=== PATIENT | female | born 1945 | race Caucasian/White ===

== ENCOUNTER → 2018-06-15 10:02 | Outpatient (CLI) | payer MEDICARE, SELFPAY ==
[2018-06-15 10:34] LABS: Add Manual Diff / Slide Review NO; Basophils Absolute Auto 0 /uL (0-100); Basophils Percent Auto 0.6 % (0-2); Eosinophils Absolute Auto 200 /uL (0-450); Eosinophils Percent Auto 3.2 % (2-4); Hematocrit 46.2 % (36-46); Hemoglobin 15.2 g/dL (12.0-16.0); Lymphocytes Absolute Auto 1800 /uL (1100-4500); Lymphocytes Percent Auto 29.2 % (25-40); Mean Corpuscular Hemoglobin 29.7 PG (26-34); Monocytes Absolute Auto 700 /uL (0-900); Monocytes Percent Auto 11.2 % (3-14); Neutrophils Absolute Auto 3500 /uL (1500-7000); Neutrophils Percent Auto 55.8 % (50-75); Platelet Count 342 X10^3/uL (150-400); Red Blood Cell Count 5.13 X10^6/uL (4.0-5.2); Red Cell Distribution Width 13.6 % (11.6-14.8); White Blood Cell Count 6.3 X10^3/uL (4.5-11.0)
[2018-06-15 11:08] LABS: Alanine Aminotransferase 24 IU/L (9-52); Albumin 4.2 g/dL (3.5-5.0); Albumin Globulin Ratio 1.5 (1.0-2.8); Alkaline Phosphatase 79 U/L (38-126); Aspartate Aminotransferase 23 IU/L (14-36); BUN Creatinine Ratio 21.3 (6-22); Bilirubin Total 0.5 mg/dL (0.2-1.3); Blood Urea Nitrogen 17 mg/dL (7-17); Calcium 9.6 mg/dL (8.4-10.2); Carbon Dioxide 28 mmol/L (22-32); Chloride 105 mmol/L (98-107); Cholesterol 215 mg/dL (140-199); Estimated Glomerular Filt Rate > 60.0 mL/min (>60); Globulin 2.8 g/dL (1.7-4.1); Glucose 82 mg/dL (80-110); HDL Cholesterol 71 mg/dL (40-60); HEMOLYSIS < 15 (0-50); LDL Cholesterol Calculated 125 mg/dL (<100); Sodium 140 mmol/L (137-145); Triglycerides 96 mg/dL (35-150)
== END ==
PROVIDERS: PCP Family Medicine; Visit Provider Physician Assistant
DX: I10 Essential (primary) hypertension (principal); E78.5 Hyperlipidemia, unspecified
CPT/HCPCS: 36415; 80053; 80061; 85025

== ENCOUNTER → 2018-09-19 13:24 | Outpatient (CLI) | payer MEDICARE, SELFPAY ==
[2018-09-19 16:34] LABS: Alanine Aminotransferase 19 IU/L (9-52); Albumin 3.9 g/dL (3.5-5.0); Albumin Globulin Ratio 1.4 (1.0-2.8); Alkaline Phosphatase 85 U/L (38-126); Aspartate Aminotransferase 26 IU/L (14-36); BUN Creatinine Ratio 21.1 (6-22); Bilirubin Total 0.3 mg/dL (0.2-1.3); Blood Urea Nitrogen 19 mg/dL (7-17); Calcium 9.7 mg/dL (8.4-10.2); Carbon Dioxide 30 mmol/L (22-32); Chloride 103 mmol/L (98-107); Cholesterol 141 mg/dL (140-199); Estimated Glomerular Filt Rate > 60.0 mL/min (>60); Globulin 2.7 g/dL (1.7-4.1); Glucose 165 mg/dL (80-110); HDL Cholesterol 60 mg/dL (40-60); HEMOLYSIS < 15 (0-50); LDL Cholesterol Calculated 62 mg/dL (<100); Sodium 142 mmol/L (137-145); Total Protein 6.6 g/dL (6.3-8.2); Triglycerides 97 mg/dL (35-150)
== END ==
PROVIDERS: PCP Physician Assistant; Visit Provider Physician Assistant
DX: I10 Essential (primary) hypertension (principal); E78.5 Hyperlipidemia, unspecified
CPT/HCPCS: 36415; 80053; 80061

== ENCOUNTER → 2019-12-17 15:04 | Outpatient (ROUT) | payer MEDICARE, SELFPAY ==
[2019-12-17 15:16] LABS: Add Manual Diff / Slide Review NO; Basophils Absolute Auto 0 /uL (0-100); Basophils Percent Auto 0.7 % (0-2); Eosinophils Absolute Auto 200 /uL (0-450); Eosinophils Percent Auto 3.4 % (2-4); Hematocrit 45.4 % (36-46); Hemoglobin 15.2 g/dL (12.0-16.0); Lymphocytes Absolute Auto 1300 /uL (1100-4500); Lymphocytes Percent Auto 23.2 % (25-40); Mean Corpuscular HGB Conc 33.5 % (30-36); Mean Corpuscular Hemoglobin 30.7 PG (26-34); Mean Corpuscular Volume 91.6 fL (80-100); Monocytes Absolute Auto 800 /uL (0-900); Neutrophils Absolute Auto 3300 /uL (1500-7000); Neutrophils Percent Auto 58.7 % (50-75); Platelet Count 329 X10^3/uL (150-400); Red Blood Cell Count 4.95 X10^6/uL (4.0-5.2); Red Cell Distribution Width 12.9 % (11.6-14.8); White Blood Cell Count 5.7 X10^3/uL (4.5-11.0)
[2019-12-17 15:38] LABS: Alanine Aminotransferase 12 IU/L (<35); Albumin 3.9 g/dL (3.5-5.0); Albumin Globulin Ratio 1.3 (1.0-2.8); Alkaline Phosphatase 92 U/L (38-126); Aspartate Aminotransferase 26 IU/L (14-36); BUN Creatinine Ratio 25.3 (6-22); Bilirubin Total 0.4 mg/dL (0.2-1.3); Blood Urea Nitrogen 19 mg/dL (7-17); Calcium 9.7 mg/dL (8.4-10.2); Carbon Dioxide 30 mmol/L (22-32); Chloride 104 mmol/L (98-107); Cholesterol 178 mg/dL (140-199); Estimated Glomerular Filt Rate > 60.0 mL/min (>60); Glucose 85 mg/dL (80-110); HDL Cholesterol 77 mg/dL (40-60); HEMOLYSIS < 15 (0-50); LDL Cholesterol Calculated 78 mg/dL (<100); Potassium 4.3 mmol/L (3.4-5.1); Sodium 140 mmol/L (137-145); Total Protein 6.9 g/dL (6.3-8.2); Triglycerides 116 mg/dL (35-150)
== END ==
PROVIDERS: PCP Physician Assistant; Visit Provider Physician Assistant
DX: I10 Essential (primary) hypertension (principal); E78.5 Hyperlipidemia, unspecified
CPT/HCPCS: 80053; 80061; 85025

== ENCOUNTER → 2022-09-06 08:04 | Outpatient (CLI) | payer MEDICARE, SELFPAY ==
[2022-09-06 09:43] LABS: BUN Creatinine Ratio 27.3 (6-22); Blood Urea Nitrogen 21 mg/dL (7-17); Calcium 9.3 mg/dL (8.4-10.2); Carbon Dioxide 28 mmol/L (22-32); Chloride 103 mmol/L (98-107); Estimated Glomerular Filt Rate > 60 mL/min (>60); Glucose 83 mg/dL (80-110); HEMOLYSIS 16 (0-50); Potassium 3.8 mmol/L (3.4-5.1); Sodium 138 mmol/L (137-145)
== END ==
PROVIDERS: PCP Physician Assistant; Referring Provider Physician Assistant; Visit Provider Physician Assistant
DX: I10 Essential (primary) hypertension (principal)
CPT/HCPCS: 36415; 80048

== ENCOUNTER → 2023-04-04 07:31 | Outpatient (CLI) | payer MEDICARE, SELFPAY ==
[2023-04-04 08:14] LABS: Add Manual Diff / Slide Review NO; Basophils Absolute Auto 0 /uL (0-100); Basophils Percent Auto 0.6 % (0-2); Eosinophils Absolute Auto 300 /uL (0-450); Eosinophils Percent Auto 4.8 % (2-4); Hematocrit 43.7 % (36-46); Hemoglobin 14.5 g/dL (12.0-16.0); Lymphocytes Absolute Auto 1700 /uL (1100-4500); Mean Corpuscular HGB Conc 33.2 % (30-36); Mean Corpuscular Hemoglobin 29.9 PG (26-34); Mean Corpuscular Volume 90.1 fL (80-100); Monocytes Absolute Auto 800 /uL (0-900); Monocytes Percent Auto 12.3 % (3-14); Neutrophils Absolute Auto 3800 /uL (1500-7000); Neutrophils Percent Auto 57.3 % (50-75); Platelet Count 325 X10^3/uL (150-400); Red Blood Cell Count 4.85 X10^6/uL (4.0-5.2); White Blood Cell Count 6.7 X10^3/uL (4.5-11.0)
[2023-04-04 08:28] LABS: Alanine Aminotransferase 12 IU/L (<35); Albumin 3.8 g/dL (3.5-5.0); Albumin Globulin Ratio 1.3 (1.0-2.8); Alkaline Phosphatase 78 U/L (38-126); Aspartate Aminotransferase 21 IU/L (14-36); BUN Creatinine Ratio 20.3 (6-22); Bilirubin Total 0.6 mg/dL (0.2-1.3); Blood Urea Nitrogen 16 mg/dL (7-17); Calcium 9.9 mg/dL (8.4-10.2); Carbon Dioxide 26 mmol/L (22-32); Chloride 103 mmol/L (98-107); Cholesterol 133 mg/dL (140-199); Estimated Glomerular Filt Rate > 60 mL/min (>60); Glucose 92 mg/dL (80-110); HDL Cholesterol 65 mg/dL (40-60); HEMOLYSIS < 15 (0-50); LDL Cholesterol Calculated 50 mg/dL (<100); Potassium 3.9 mmol/L (3.4-5.1); Sodium 136 mmol/L (137-145); Total Protein 6.8 g/dL (6.3-8.2); Triglycerides 89 mg/dL (35-150)
== END ==
LOC: LAB 07:33
PROVIDERS: PCP Physician Assistant; Referring Provider Physician Assistant; Visit Provider Physician Assistant
DX: I10 Essential (primary) hypertension (principal); E78.49 Other hyperlipidemia
CPT/HCPCS: 36415; 80053; 80061; 85025

== ENCOUNTER 2023-07-10 12:46 | Emergency (ER) | payer MEDICARE, SELFPAY ==
[2023-07-10] VITALS (14 sets, daily range): BP systolic 115–151; BP diastolic 62–77; PULSE 67–93; RESP 18–25; TEMP 37.1; O2SAT 85–97
--- NOTE | 2023-07-10 12:56 | DI.CT.S_ITS ---
PROCEDURE: CT HEAD/BRAIN WO CON INDICATIONS: h/o lung CA, change in mental status, not talking but alert TECHNIQUE: Noncontrast 4.5 mm thick angled axial sections acquired from the foramen magnum to the vertex, with coronal and sagittal reformats. For radiation dose reduction, the following was used: automated exposure control, adjustment of mA and/or kV according to patient size. COMPARISON: None. FINDINGS: Image quality: Diagnostic. CSF spaces: Basal cisterns are patent. No extra-axial fluid collections. The ventricles are symmetric in size and shape. Brain: No acute intracranial hemorrhage. Intracranial hyperdense masses are noted with associated vasogenic edema. There is a 1.3 cm inferior left frontal lobe mass seen on image 12/series 2. A similar mass measuring 1.1 cm noted in the posterior right parietal lobe (25/series 2). There is cerebral volume loss for age, with resultant ventricular and sulcal prominence. There are periventricular and deep white matter chronic small vessel ischemic changes. There is intracranial internal carotid artery atherosclerosis. Skull and face: Calvarium and visualized facial bones appear intact, without suspicious lesions. Sinuses: Visualized sinuses and mastoids are clear. IMPRESSION: 1. Multiple hyperdense intracranial masses with associated vasogenic edema noted in the left frontal lobe and right parietal lobe. 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 No evidence for mass effect or midline shift of structures. 2. No acute intracranial hemorrhage. 3. Age related senescent changes and sequela of chronic small vessel ischemic disease. Dictated by: Delfino Figueroa M.D. on 07/10/2023 at 14:11 Approved by: Delfino Figueroa M.D. on 07/10/2023 at 14:15
--- NOTE | 2023-07-10 12:56 | DI.CT.S_ITS ---
PROCEDURE: CT ANGIO HEAD AND NECK INDICATIONS: h/o lung CA, change in mental status, not talking but alert TECHNIQUE: After the administration of intravenous contrast, 1 mm thick sections acquired from the aortic arch through the [place]. 3-dimensional ihwfcec-qozwukwdr-rthdwdcjgn (MIP) and/or volume rendering reformats were acquired of the central intracranial vasculature and neck separately. For radiation dose reduction, the following was used: automated exposure control, adjustment of mA and/or kV according to patient size. COMPARISON: [facility], CT, CT HEAD/BRAIN WO CON, 07/10/2023, 13:30. [facility], CR, XR CHEST 1V, 07/10/2023, 13:21. FINDINGS: Image quality: Diagnostic. BRAIN: CSF spaces: Ventricles are stable in size and shape. Basal cisterns are patent. No extra-axial fluid collections. Brain: There are intracranial masses with associated vasogenic edema noted in the left frontal lobe and right posterior parietal lobe. This is similar to lesion seen on comparison CT of the head from earlier same day. Findings are suspicious for intracranial metastases.. Skull and face: Calvarium and facial bones appear intact, without suspicious lesions. Orbits appear normal. Sinuses: Sinuses and mastoids are clear. HEAD CT ANGIOGRAPHY: Anterior circulation: Intracranial internal carotid arteries are diffusely enlarged in size bilaterally. No occlusion. No dissection. No focal aneurysm.. The flow within the paired anterior cerebral arteries is normal and symmetric. The flow within the middle cerebral arteries is normal and symmetric. The anterior communicating artery is seen. Posterior circulation: Visualized portions of the vertebral arteries demonstrate normal caliber, and join to form a normal appearing basilar artery. Flow within the posterior cerebral arteries is normal and symmetric. No aneurysms are seen. NECK CT ANGIOGRAPHY: Carotid system: The great vessels demonstrate a conventional anatomy as they arise from the aortic arch. The origins of the common carotid arteries appear patent. The common carotid arteries demonstrate normal caliber and courses. The bifurcation regions are both widely patent. The internal carotid arteries demonstrate normal calibers and courses. Posterior circulation: The origins of the vertebral arteries both appear widely patent. The more superior extracranial portions of both vertebral arteries also demonstrate normal courses and calibers. They join to form a normal appearing basilar artery. Soft tissues: Visualized neck soft tissues demonstrate no suspicious abnormalities. Atelectasis of the right upper lobe and large right lung mass compatible with known history of lung cancer. Air bronchograms noted on the right. Right pleural effusion. Upper lobe predominant pulmonary emphysema. Left lung is otherwise clear. Bones: No suspicious bony lesions. Visualized cervical spine appears normally aligned. Multilevel cervical spondylosis. No acute compression fracture. IMPRESSION: Diffusely enlarged intracranial arterial vasculature without evidence for stenosis, dissection, or focal aneurysm. No occlusion seen. No significant abnormality is seen within the arteries of the neck. Intracranial nodular masses in the left frontal lobe and right parietal lobe compatible with intracranial metastases in this patient with known lung cancer as seen in the right hemithorax. Associated collapse of the right upper lobe. Any quantitative measurements of stenosis were performed using NASCET criteria. Dictated by: Delfino Figueroa M.D. on 07/10/2023 at 14:24 Approved by: Delfino Figueroa M.D. on 07/10/2023 at 14:30
--- NOTE | 2023-07-10 12:56 | DI.RAD.S_ITS ---
PROCEDURE: XR CHEST 1V INDICATIONS: altered mental status TECHNIQUE: One view of the chest was acquired. COMPARISON: [facility], CT, CT HALL, 07/04/2023, 13:46. [facility], CR, XR CHEST 1 VIEW, 06/24/2023, 9:38. FINDINGS: Surgical changes and devices: Right tunneled port device in place. Lungs and pleura: Redemonstration of right mid lung zone consolidation/mass with atelectasis of the right upper lobe. Nodular opacities involving the periphery of the left lower lung zone. Mediastinum: Mediastinal contours appear normal. Heart size is normal. Bones and chest wall: No suspicious bony lesions. Overlying soft tissues appear unremarkable. IMPRESSION: Stable appearance of the right hemithorax with known right lung mass and atelectasis of the right upper lobe. Nodular opacities of the left lower lobe possibly representing new pulmonary nodules versus focal airspace disease/pneumonia. Dictated by: Delfino Figueroa M.D. on 07/10/2023 at 13:56 Approved by: Delfino Figueroa M.D. on 07/10/2023 at 14:00
--- NOTE | 2023-07-10 12:59 | PC.NURSE ---
Morphine ER 30 mg counted, 41 in bottle. Filled 06/27/23 w/ # 60. Oxycodone IR appears to have appropriate number however is PRN so is unable to accurately figure use.
--- NOTE | 2023-07-10 13:07 | ED_ITS ---
HPI - Altered Mental Status General Chief Complaint: Altered Mental Status Stated Complaint: Poss. Pain Med OD Time Seen by Provider: 07/10/23 12:58 Source: patient, family, RN notes reviewed and old records reviewed Mode of arrival: Ambulatory History of Present Illness HPI narrative: 78-year-old female with known metastatic stage IV lung cancer on chemo and radiation with also history of hypertension who presents with alteration in mental status has been states he thought she might have taken too many pain medications. He states she has not really talking. He states she normally does not walk very much she spends about 23 hours a day in bed secondary to pain in her back from her metastatic cancer. Patient today when he went into check on her was sort of moving things around and seeming to organize, she will sort of follow directions but he states it seems to take awhile for things to get through but she can not respond or talk. He has not appreciate any obvious weakness or facial droop. He states she seemed to be doing normally last night. She is on oxycodone and morphine currently but has not been somnolent or sleepy today. No reports of fevers, no reports of chest pain or shortness of breath, occasionally has vomiting but none today. Had 1 episode of incontinence with stool and urine earlier in the week. Has not had any today. She has not had any obvious weakness that he is appreciated. She has not on any anticoagulants she states she is on medication for blood pressure as well as pain medication. Allergy to erythromycin base but no other allergies. No tobacco, alcohol or recreational drugs reported. Patient follows with oncology at [facility]. Related Data Home Medications Medication Instructions Recorded Confirmed amlodipine 2.5 mg tablet 2.5 mg PO DAILY 07/10/23 07/10/23 aspirin 81 mg capsule 81 mg PO DAILY 07/10/23 07/10/23 atenolol 50 mg tablet 50 mg PO DAILY 07/10/23 07/10/23 lisinopril 40 mg tablet 40 mg PO DAILY 07/10/23 07/10/23 magnesium citrate 150 ml PO DAILY PRN Constipation 07/10/23 07/10/23 morphine 30 mg tablet,extended 30 mg PO BID 07/10/23 07/10/23 release oxycodone 10 mg tablet 10 mg PO Q4HR PRN Pain (Scale 07/10/23 07/10/23 Score 7-10) rosuvastatin 5 mg tablet 5 mg PO DAILY 07/10/23 07/10/23 Previous Rx's Medication Instructions Recorded dexamethasone 4 mg tablet 4 mg PO TID #30 tabs 07/10/23 Allergies Allergy/AdvReac Type Severity Reaction Status Date / Time erythromycin base Allergy Unknown Verified 07/10/23 13:50 [ERYTHROMYCIN BASE] Review of Systems Review of Systems ROS Unobtainable: All systems reviewed & are unremarkable except as noted in HPI and below Patient History Medical History (Updated 07/10/23 @ 15:24 by Yanelis Costello DO) Port-A-Cath in place History of smoking Hypertension Cancer of upper lobe of right lung Hyperlipidemia Surgical History Status post hysterectomy Social History Smoking Status: Former smoker Exam Narrative Exam Narrative: GEN: well nourishedfemale, alert, answers yes when I ask if she can hear me but does not answer any other questions or we will check all,, patient appears to be in mild distress. Patient does not follow commands. HEENT: Atraumatic, pupils are equal round reactive to light, extraocular movements are intact, nares are clear, TMs are clear with no fluid, there is no conjunctival pallor. Throat is clear without any exudates, erythema, tonsillar enlargement or uvular deviation, no facial droop. HEART: Regular rate and rhythm without murmur, clicks, rubs. Pulses are equal in upper and lower extremities LUNGS:Lungs clear to auscultation, no wheezes, rales, crackles, chest moves symmetrically, no tachypnea or accessory muscle use ABD:bowel sounds normal, soft, non-tender, no guarding, rebound, rigidity, no masses noted, no hepatosplenomegaly :No CVA tenderness MSCL: Non-tender, no muscle atrophy, muscles strength 5/5 upper and lower extremities, full range of motion, normal gait patient did not ambulate into the department. NEURO:CN 2-12 intact, sensation normal, patient GCS of 14, she is alert does not really follow commands we will hold her arms up equally but can not get her to perform any other NIH exam. No obvious lateralizing changes. Does appear to have some expressive aphasia but unclear if she is actually understanding anything that I am saying. Initial Vital Signs Initial Vital Signs: Vital Signs Pulse Rate 91 H 07/10/23 12:55 Respiratory Rate 23 07/10/23 12:55 Pulse Oximetry 93 07/10/23 12:55 Course Orders Ordered: ED Orders 07/10/23 12:56 CT angio head and neck Stat CT head/brain wo con Stat XR chest 1V Stat 07/10/23 13:00 Complete Blood Count AUTO DIFF Stat Comprehensive Metabolic Panel Stat ETOH [Ethanol (ETOH)] Stat PTT Partial Thromboplastin Guillaume Stat Prothrombin Time INR Stat 07/10/23 13:24 EKG-12 Lead Stat 07/10/23 15:15 Urinalysis and Microscopic Stat Urine Drug Screen, Rapid Stat Discontinued Medications Dexamethasone (Dexamethasone 10 Mg/Ml Vial) 10 mg IV NOW ONE Stop: 07/10/23 14:22 Last Admin: 07/10/23 14:32 Dose: 10 mg Documented By: SB Vital Signs Vital signs: Vital Signs - 8 hr 07/10/23 12:55 07/10/23 12:56 07/10/23 12:56 Temperature Pulse Rate 91 H 91 H Respiratory Rate 23 25 H Blood Pressure 124/62 Pulse Oximetry 93 96 Oxygen Delivery Method Oxygen Flow Rate 07/10/23 13:00 07/10/23 13:00 07/10/23 13:04 Temperature 98.8 F Pulse Rate 92 H 92 H Respiratory Rate 23 18 Blood Pressure 125/62 125/62 Pulse Oximetry 94 93 Oxygen Delivery Method Room Air Oxygen Flow Rate 07/10/23 13:43 07/10/23 13:44 07/10/23 13:44 Temperature Pulse Rate 67 92 H Respiratory Rate 23 Blood Pressure 126/63 Pulse Oximetry 90 L 89 L Oxygen Delivery Method Room Air Oxygen Flow Rate 07/10/23 13:55 07/10/23 14:01 07/10/23 14:01 Temperature Pulse Rate 91 H Respiratory Rate 22 Blood Pressure 128/71 Pulse Oximetry 85 L 96 Oxygen Delivery Method Room Air Oxygen Flow Rate 07/10/23 14:30 07/10/23 14:30 07/10/23 15:00 Temperature Pulse Rate 88 Respiratory Rate Blood Pressure 115/67 122/69 Pulse Oximetry 97 Oxygen Delivery Method Nasal Cannula Oxygen Flow Rate 2 07/10/23 15:00 07/10/23 15:24 07/10/23 15:24 Temperature Pulse Rate 90 88 Respiratory Rate 21 Blood Pressure 151/72 H Pulse Oximetry 95 95 Oxygen Delivery Method Oxygen Flow Rate 07/10/23 15:30 07/10/23 15:30 07/10/23 16:00 Temperature Pulse Rate 86 90 Respiratory Rate 24 22 Blood Pressure 142/70 H Pulse Oximetry 97 96 Oxygen Delivery Method Nasal Cannula Nasal Cannula Oxygen Flow Rate 2 2 07/10/23 16:46 Temperature Pulse Rate 93 H Respiratory Rate 24 Blood Pressure 141/77 H Pulse Oximetry 92 Oxygen Delivery Method Room Air Oxygen Flow Rate MDM - Altered Mental Status Lab Data 07/10/23 13:00 07/10/23 13:00 Labs: Lab Results 07/10/23 07/10/23 07/10/23 Range/Units 13:00 15:15 15:15 WBC 9.0 (4.5-11.0) X10^3/uL RBC 4.27 (4.0-5.2) X10^6/uL Hgb 11.8 L (12.0-16.0) g/dL Hct 36.1 (36-46) % MCV 84.6 (80-100) fL MCH 27.6 (26-34) PG MCHC 32.6 (30-36) % RDW 14.1 (11.6-14.8) % Plt Count 335 (150-400) X10^3/uL Neut % (Auto) 83.9 H (50-75) % Lymph % (Auto) 4.1 L (25-40) % [place] % (Auto) 10.6 (3-14) % Eos % (Auto) 1.1 L (2-4) % Baso % (Auto) 0.3 (0-2) % Neut # (Auto) 7500 H (8368-8105) /uL Lymph # (Auto) 400 L (5282-0755) /uL [place] # (Auto) 1000 H (0-900) /uL Eos # (Auto) 100 (0-450) /uL Baso # (Auto) 0 (0-100) /uL PT 13.8 H (9.4-12.5) SECONDS INR 1.2 (0.9-1.3) APTT 31 (25.1-36.5) SECONDS Sodium 135 L (137-145) mmol/L Potassium 4.1 (3.4-5.1) mmol/L Chloride 99 (98-107) mmol/L Carbon Dioxide 28 (22-32) mmol/L BUN 30 H (7-17) mg/dL Creatinine 0.81 (0.52-1.04) mg/dL Estimated GFR > 60 (>60) mL/min BUN/Creatinine Ratio 37.0 H (6-22) Glucose 126 H (80-110) mg/dL Calcium 9.4 (8.4-10.2) mg/dL Total Bilirubin 0.8 (0.2-1.3) mg/dL AST 61 H (14-36) IU/L ALT 16 (<35) IU/L Alkaline Phosphatase 62 (38-126) U/L Total Protein 6.8 (6.3-8.2) g/dL Albumin 3.3 L (3.5-5.0) g/dL Globulin 3.5 (1.7-4.1) g/dL Albumin/Globulin Ratio 0.9 L (1.0-2.8) Urine Color Yellow Urine Appearance Clear Urine pH 5.0 Normal (4.5-8.0) Ur Specific [place] 1.015 (1.000-1.035) Urine Protein Trace H (Negative) Urine Glucose (UA) Negative (Negative) g/dL Urine Ketones 1+ H (NEGATIVE) Urine Occult Blood Negative (Negative) Urine Nitrate Negative (Negative) Urine Bilirubin Negative (NEGATIVE) Urine Urobilinogen 1.0 (0.2) E.U./dL Ur Leukocyte Esterase Negative (NEGATIVE) Urine RBC 0-1/hpf (0-5/HPF) Urine WBC 0-1/hpf (0-5/HPF) Ur Squamous Epith Cells 0-1 /hpf (0-5/HPF) Urine Bacteria Occasional (0-1) (None) Urine Mucus 1+ H (Negative) Ur Culture Indicated? Cult not indicated Vol Urine Centrifuged 10ml (spun) U Opiates 300ng/mL cut Positive H (Negative) Ur Oxycodone Screen Positive H (Negative) Urine Methadone Screen Negative (Negative) Ur Barbiturates Screen Negative (Negative) U Tricyclic Antidepress Negative (Negative) Ur Phencyclidine Scrn Negative (Negative) Ur Amphetamines Screen Negative (Negative) U Methamphetamines Scrn Negative (Negative) Ur MDMA Scrn (Ecstasy) Negative (Negative) U Benzodiazepines Scrn Negative (Negative) Urine Cocaine Screen Negative (Negative) U Marijuana (THC) Screen Positive H (Negative) Urine Specific [place] Normal (Normal) Ethyl Alcohol < 10 ( - 10) mg/dL Ur Creatinine Normal (Normal) Point of Care Testing Glucose POC [address] scan - head: Radiologist's Impression: [address] [address] [address] Scan Report Signed Patient: Itzel Valencia MR#: [id number] : 1945 Acct:[id number] Age/Sex: 78 / F Date of Service: 07/10/23 Loc: ED Accession Number: [id number] Procedure: CT head/brain wo con Ordering Provider: Yanelis Costello D.O. PROCEDURE: CT HEAD/BRAIN WO CON INDICATIONS: h/o lung CA, change in mental status, not talking but alert TECHNIQUE: Noncontrast 4.5 mm thick angled axial sections acquired from the foramen magnum to the vertex, with coronal and sagittal reformats. For radiation dose reduction, the following was used: automated exposure control, adjustment of mA and/or kV according to patient size. COMPARISON: None. FINDINGS: Image quality: Diagnostic. CSF spaces: Basal cisterns are patent. No extra-axial fluid collections. The ventricles are symmetric in size and shape. Brain: No acute intracranial hemorrhage. Intracranial hyperdense masses are noted with associated vasogenic edema. There is a 1.3 cm inferior left frontal lobe mass seen on image 12/series 2. A similar mass measuring 1.1 cm noted in the posterior right parietal lobe (25/series 2). There is cerebral volume loss for age, with resultant ventricular and sulcal prominence. There are periventricular and deep white matter chronic small vessel ischemic changes. There is intracranial internal carotid artery atherosclerosis. Skull and face: Calvarium and visualized facial bones appear intact, without suspicious lesions. Sinuses: Visualized sinuses and mastoids are clear. IMPRESSION: 1. Multiple hyperdense intracranial masses with associated vasogenic edema noted in the left frontal lobe and right parietal lobe. 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 No evidence for mass effect or midline shift of structures. 2. No acute intracranial hemorrhage. 3. Age related senescent changes and sequela of chronic small vessel ischemic disease. Dictated by: Delfino Figueroa M.D. on 07/10/2023 at 14:11 Approved by: Delfino Figueroa M.D. on 07/10/2023 at 14:15 CTA - brain/neck: Radiologist's Impression: Close Head/Neck CTA (Signed) Delfino Figueroa - 07/10/[address] (Signed) Delfino Figueroa - 07/10/23 Chest X-Ray (Signed) Delfino Figueroa - 07/10/23 Launch?[place] [address] CT Scan Report Signed Patient: Itzel Valencia MR#: [id number] : 1945 Acct:[id number] Age/Sex: 78 / F Date of Service: 07/10/23 Loc: ED Accession Number: [id number] Procedure: CT angio head and neck Ordering Provider: Yanelis Costello D.O. PROCEDURE: CT ANGIO HEAD AND NECK INDICATIONS: h/o lung CA, change in mental status, not talking but alert TECHNIQUE: After the administration of intravenous contrast, 1 mm thick sections acquired from the aortic arch through the [place] of [place]. 3-dimensional rezmewk-vudzccyvq-lsiqjutevs (MIP) and/or volume rendering reformats were acquired of the central intracranial vasculature and neck separately. For radiation dose reduction, the following was used: automated exposure control, adjustment of mA and/or kV according to patient size. COMPARISON: [facility], CT, CT HEAD/BRAIN WO CON, 07/10/2023, 13:30. [facility], CR, XR CHEST 1V, 07/10/2023, 13:21. FINDINGS: Image quality: Diagnostic. BRAIN: CSF spaces: Ventricles are stable in size and shape. Basal cisterns are patent. No extra-axial fluid collections. Brain: There are intracranial masses with associated vasogenic edema noted in the left frontal lobe and right posterior parietal lobe. This is similar to lesion seen on comparison CT of the head from earlier same day. Findings are suspicious for intracranial metastases.. Skull and face: Calvarium and facial bones appear intact, without suspicious lesions. Orbits appear normal. Sinuses: Sinuses and mastoids are clear. HEAD CT ANGIOGRAPHY: Anterior circulation: Intracranial internal carotid arteries are diffusely enlarged in size bilaterally. No occlusion. No dissection. No focal aneurysm.. The flow within the paired anterior cerebral arteries is normal and symmetric. The flow within the middle cerebral arteries is normal and symmetric. The anterior communicating artery is seen. Posterior circulation: Visualized portions of the vertebral arteries demonstrate normal caliber, and join to form a normal appearing basilar artery. Flow within the posterior cerebral arteries is normal and symmetric. No aneurysms are seen. NECK CT ANGIOGRAPHY: Carotid system: The great vessels demonstrate a conventional anatomy as they arise from the aortic arch. The origins of the common carotid arteries appear patent. The common carotid arteries demonstrate normal caliber and courses. The bifurcation regions are both widely patent. The internal carotid arteries demonstrate normal calibers and courses. Posterior circulation: The origins of the vertebral arteries both appear widely patent. The more superior extracranial portions of both vertebral arteries also demonstrate normal courses and calibers. They join to form a normal appearing basilar artery. Soft tissues: Visualized neck soft tissues demonstrate no suspicious abnormalities. Atelectasis of the right upper lobe and large right lung mass compatible with known history of lung cancer. Air bronchograms noted on the right. Right pleural effusion. Upper lobe predominant pulmonary emphysema. Left lung is otherwise clear. Bones: No suspicious bony lesions. Visualized cervical spine appears normally aligned. Multilevel cervical spondylosis. No acute compression fracture. IMPRESSION: Diffusely enlarged intracranial arterial vasculature without evidence for stenosis, dissection, or focal aneurysm. No occlusion seen. No significant abnormality is seen within the arteries of the neck. Intracranial nodular masses in the left frontal lobe and right parietal lobe compatible with intracranial metastases in this patient with known lung cancer as seen in the right hemithorax. Associated collapse of the right upper lobe. Any quantitative measurements of stenosis were performed using NASCET criteria. Dictated by: Delfino Figueroa M.D. on 07/10/2023 at 14:24 Approved by: Delfino Figueroa M.D. on 07/10/2023 at 14:30 ECG Data Attestation: I personally reviewed and interpreted this ECG as follows: Prior ECG tracings: not available for review Interpretation: Normal sinus rhythm rate of 93 OK 144 QRS is 74 QTC 450. Nonspecific change. No prior EKGs for comparison. MDM Narrative Medical decision making narrative: 78-year-old female with altered mental status possible expressive aphasia but patient does not really seem to understand commands no other clear lateralizing or stroke-like effects. She is on significant narcotics for pain but appears alert and does not appear to be somnolent making this less likely source. She does have known metastatic lung cancer so concern for mass or bleed, potential also for stroke, electrolyte abnormality versus infection also possibility although patient is afebrile with heart rate of 92 but otherwise appropriate vitals in the department. Labs white count of 9, hemoglobin 11.8, platelets of 335, leftward shift. INR 1.2. Sodium 135, electrolytes more 1, BUN 30 creatinine is 0.8 glucose of 126, AST of 61, LFTs are negative. EKG Head CT-multiple hyperdense intracranial masses with vasogenic edema associated left frontal lobe and right parietal lobe, findings are compatible with intracranial metastases no evidence for mass effect or midline shift structures, no acute intracranial hemorrhage, age-related senescent changes in sequela of chronic small-vessel ischemic disease. CT angio head and neck: Diffusely enlarged intracranial arterial vasculature without evidence for stenosis, dissection or focal aneurysm. No occlusion seen. No significant abnormality seen in arteries in the neck intracranial nodular masses left frontal lobe and right parietal lobe compatible with intracranial metastases and lung with known lung cancer is seen in the right hemithorax with associated collapse of the right upper lobe. Patient was given dose of dexamethasone 10 mg IV. She follows with oncology at [facility] Dr. Rice. They have been receiving radiation to her chest. Discussed we will discuss with the mom about next step recommendations. Reviewed with family whether or not this was palliative treatment and has been states it is not. Patient has been requiring 2 L nasal cannula after discussion with the patient and family he notes that she did require some as you are having a port placed on the and has been having intermittent O2 requirements although they do not have any at home. Spoke with patient and family. They notes she has been requiring some oxygen which is new. Discussed with Dr. Hall on-call for Oncology patient has had some mental status change but is otherwise alert she is a bit more conversant on recheck. He recommends adding dexamethasone 4 mg t.i.d. they will get connect her with radiation oncology for brain radiation. Discussed she is having some new O2 requirements but has pretty significant mass changes in her lungs, RT was able to set patient up with home O2. They feel comfortable returning home has been states her mentation seems much better. I agree. Discussed return precautions to start oral dexamethasone continue t.i.d.. 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 I spoke with your oncology team, Dr. Paris today they will reach out to you about setting up radiation of the brain. We are also starting you on an oral steroid to help with the swelling, take 1 tablet every 8 hours. Prescription was sent to [facility] in [place]. You may continue your other home medications as prescribed. It was also noted your oxygen was low today likely secondary to the large mass in your chest, respiratory therapy has set you up with home O2. Please return for fevers, new or increasing changes to mental status, severe headaches, vomiting, difficulty with movement, ambulation, falls, loss of bowel or bladder control or other new or concerning changes. Prescriptions: New dexamethasone 4 mg tablet 4 mg PO TID Qty: 30 0RF No Action amlodipine 2.5 mg tablet 2.5 mg PO DAILY morphine 30 mg tablet extended release 30 mg PO BID magnesium citrate Solution 150 ml PO DAILY PRN (Reason: Constipation) lisinopril 40 mg tablet 40 mg PO DAILY atenolol 50 mg tablet 50 mg PO DAILY rosuvastatin 5 mg tablet 5 mg PO DAILY oxycodone 10 mg tablet 10 mg PO Q4HR PRN (Reason: Pain (Scale Score 7-10)) aspirin 81 mg Capsule 81 mg PO DAILY Referrals: Divina Fletcher PA-C [Primary Care Provider] - Juanpablo Rice MD [Physician] - Stand Alone Forms: Patient Portal/API
[2023-07-10 13:11] LABS: Add Manual Diff / Slide Review NO; Basophils Absolute Auto 0 /uL (0-100); Basophils Percent Auto 0.3 % (0-2); Eosinophils Absolute Auto 100 /uL (0-450); Eosinophils Percent Auto 1.1 % (2-4); Hematocrit 36.1 % (36-46); Hemoglobin 11.8 g/dL (12.0-16.0); Lymphocytes Absolute Auto 400 /uL (1100-4500); Lymphocytes Percent Auto 4.1 % (25-40); Mean Corpuscular HGB Conc 32.6 % (30-36); Mean Corpuscular Hemoglobin 27.6 PG (26-34); Mean Corpuscular Volume 84.6 fL (80-100); Monocytes Absolute Auto 1000 /uL (0-900); Monocytes Percent Auto 10.6 % (3-14); Neutrophils Absolute Auto 7500 /uL (1500-7000); Neutrophils Percent Auto 83.9 % (50-75); Platelet Count 335 X10^3/uL (150-400); Red Blood Cell Count 4.27 X10^6/uL (4.0-5.2); Red Cell Distribution Width 14.1 % (11.6-14.8)
[2023-07-10 13:15] LABS: INR 1.2 (0.9-1.3); Prothrombin Time 13.8 SECONDS (9.4-12.5)
[2023-07-10 13:19] LABS: PTT Partial Thromboplastin Tim 31 SECONDS (25.1-36.5)
[2023-07-10 13:20] LABS: Alanine Aminotransferase 16 IU/L (<35); Albumin 3.3 g/dL (3.5-5.0); Albumin Globulin Ratio 0.9 (1.0-2.8); Alkaline Phosphatase 62 U/L (38-126); Aspartate Aminotransferase 61 IU/L (14-36); Bilirubin Total 0.8 mg/dL (0.2-1.3); Blood Urea Nitrogen 30 mg/dL (7-17); Calcium 9.4 mg/dL (8.4-10.2); Carbon Dioxide 28 mmol/L (22-32); Chloride 99 mmol/L (98-107); Estimated Glomerular Filt Rate > 60 mL/min (>60); Globulin 3.5 g/dL (1.7-4.1); Glucose 126 mg/dL (80-110); HEMOLYSIS 46 (0-50); Potassium 4.1 mmol/L (3.4-5.1); Sodium 135 mmol/L (137-145); Total Protein 6.8 g/dL (6.3-8.2)
[2023-07-10 13:21] LABS: Ethanol (ETOH) < 10 mg/dL
--- NOTE | 2023-07-10 13:34 | PC.NURSE ---
Patient left department with public health sanitarian technician.
--- NOTE | 2023-07-10 14:29 | PC.NURSE ---
This RN checks on patient. Pt is alert to name, , but unaware of place and date. Pt denies any pain. Warm blankets given. Call light within reach. Encouraged to use for needs.
[2023-07-10] MEDS: DEXAMETHASONE 10 MG/ML VIAL IV (14:32)
[2023-07-10 15:32] LABS: Appearance Urine UA CLEAR; Bilirubin Urine UA NEGATIVE (NEGATIVE); Color Urine UA YELLOW; Glucose Urine UA NEGATIVE (Negative); Ketones Urine UA 1+ (NEGATIVE); Leukocyte Esterase Urine UA NEGATIVE (NEGATIVE); Nitrite Urine UA NEGATIVE (Negative); Occult Blood Urine UA NEGATIVE (Negative); Protein Urine UA TRACE (Negative); Specific Gravity Urine UA 1.015 (1.000-1.035)
[2023-07-10 15:36] LABS: UR Morphine/Opiate cutoff 300 Positive (Negative); Ur Creatinine Normal (Normal); Ur Specific Gravity Normal (Normal); Urine Amphetamines Negative (Negative); Urine Cocaine Negative (Negative); Urine Methamphetamines Negative (Negative); Urine Phencyclidine Negative (Negative); Urine Tetrahydrocannabinol Positive (Negative); Urine pH Normal (Normal)
[2023-07-10 15:37] LABS: Urine Barbiturates Negative (Negative); Urine Benzodiazepines Negative (Negative); Urine MDMA Negative (Negative); Urine Methadone Negative (Negative); Urine Oxycodone Positive (Negative); Urine Tricyclic Antidepressant Negative (Negative)
[2023-07-10 15:41] LABS: Bacteria Urine Occasional (0-1); Culture Indicated Urine Cult Not Indicated; Mucus Urine 1+ (Negative); RBC Urine 0-1/HPF (0-5/HPF); Squamous Epithelial Cell Urine 0-1 /HPF (0-5/HPF); Urine Volume 10mL (spun); WBC Urine 0-1/HPF (0-5/HPF)
== END 2023-07-10 17:01 | disposition home or self-care (01) ==
PROVIDERS: Emergency Provider Emergency Medicine; PCP Physician Assistant
DX: C79.31 Secondary malignant neoplasm of brain (principal); R41.82 Altered mental status, unspecified
CPT/HCPCS: 36415; 70450; 70496; 70498; 71045; 80053; 80305; 80320; 81001; 82962; 85025; 85610; 85730; 93005; 96374; 99285; J1100; Q9967

== ENCOUNTER 2023-07-14 08:21 | Emergency (ER) | payer MEDICARE, SELFPAY ==
[2023-07-14] VITALS (43 sets, daily range): BP systolic 112–167; BP diastolic 56–84; PULSE 78–95; RESP 13–29; TEMP 36.7; O2SAT 89–95; BMI 22.7
--- NOTE | 2023-07-14 08:50 | ED.NAVMDI ---
HPI - Nausea/Vomiting/Diarrhea General Chief complaint: Nausea/Vomiting/Diarrhea Stated complaint: Dehydrated, N/V, Stage 4 Cancer Time Seen by Provider: 07/14/23 08:29 Source: patient and EMS Mode of arrival: EMS History of Present Illness HPI Narrative: Patient is a 78-year-old female. Is currently under the care of Oncology for evaluation of malignancy. Has yet to receive any chemotherapy or radiation but is undergoing the preliminary workup for this. Stated that yesterday she started to have right-sided ?kidney? pain. Started to have vomiting. Has been vomiting all night. Has not taken any of her medication this morning because of vomiting. She states she feels like she is dehydrated. She did have an MRI done last evening. This was a scheduled MRI at an outside facility. This MRI as of her brain. She comes in the emergency department today for the symptoms. Related Data Home Medications Medication Instructions Recorded Confirmed amlodipine 2.5 mg tablet 2.5 mg PO DAILY 07/10/23 07/10/23 aspirin 81 mg capsule 81 mg PO DAILY 07/10/23 07/10/23 atenolol 50 mg tablet 50 mg PO DAILY 07/10/23 07/10/23 lisinopril 40 mg tablet 40 mg PO DAILY 07/10/23 07/10/23 magnesium citrate 150 ml PO DAILY PRN Constipation 07/10/23 07/10/23 morphine 30 mg tablet,extended 30 mg PO BID 07/10/23 07/10/23 release oxycodone 10 mg tablet 10 mg PO Q4HR PRN Pain (Scale 07/10/23 07/10/23 Score 7-10) rosuvastatin 5 mg tablet 5 mg PO DAILY 07/10/23 07/10/23 Previous Rx's Medication Instructions Recorded dexamethasone 4 mg tablet 4 mg PO TID #30 tabs 07/10/23 hydromorphone 2 mg tablet 2 mg PO Q4-6H PRN pain #14 tabs 07/14/23 (Dilaudid) Allergies Allergy/AdvReac Type Severity Reaction Status Date / Time erythromycin base Allergy Unknown Verified 07/10/23 13:50 [ERYTHROMYCIN BASE] Review of Systems Review of Systems ROS Unobtainable: All systems reviewed & are unremarkable except as noted in HPI and below Patient History Medical History Port-A-Cath in place History of smoking Hypertension Cancer of upper lobe of right lung Hyperlipidemia Surgical History Status post hysterectomy Social History Smoking Status: Former smoker Smoking Status: Former smoker Substance Use Type: marijuana Exam Initial Vital Signs Initial Vital Signs: Vital Signs Pulse Rate 78 07/14/23 08:31 Const General: cooperative and No ill appearing HENMT Head: normal to inspection and normocephalic Mouth: oral mucosae normal Resp Effort & Inspection: normal respiratory effort Auscultation: clear to auscultation bilaterally Cardio Rate: regular rate Rhythm: regular rhythm GI Inspection: non-distended Skin General: no rashes or lesions noted Neuro General: patient alert, patient awake and moves all extremities Course Orders Ordered: ED Orders 07/14/23 12:58 Consult to [facility] [place] [facility] Stat 07/14/23 16:00 Urine Microscopic Stat 07/14/23 16:11 EKG-12 Lead Stat 07/14/23 17:03 Consult to Home Health Stat Discontinued Medications Hydromorphone HCl (Hydromorphone 2 Mg Tablet) 2 mg PO NOW ONE Stop: 07/14/23 14:58 Last Admin: 07/14/23 15:03 Dose: 2 mg Documented By: RB Sodium Chloride (Normal Saline 0.9%) 1,000 mls @ 1,000 mls/hr IV BOLUS ONE Stop: 07/14/23 09:28 Last Infusion: 07/14/23 10:20 Dose: Infused Documented By: Admin: 07/14/23 09:15 Dose: 1,000 mls/hr Documented By: RB Morphine Sulfate (Morphine 4 Mg/Ml Inj) 4 mg IV NOW ONE Stop: 07/14/23 08:51 Last Admin: 07/14/23 09:18 Dose: 4 mg Documented By: RB Morphine Sulfate (Morphine 4 Mg/Ml Inj) 4 mg IV NOW ONE Stop: 07/14/23 11:18 Last Admin: 07/14/23 11:39 Dose: 4 mg Documented By: RB Ondansetron HCl (Ondansetron 4 Mg/2 Ml Inj) 4 mg IV NOW ONE Stop: 07/14/23 08:51 Last Admin: 07/14/23 09:18 Dose: 4 mg Documented By: RB Vital Signs Vital signs: Vital Signs - 8 hr 07/14/23 12:00 07/14/23 12:00 07/14/23 12:15 Pulse Rate 84 Respiratory Rate 17 Blood Pressure 130/61 121/59 L Pulse Oximetry Oxygen Delivery Method Oxygen Flow Rate 07/14/23 12:15 07/14/23 12:30 07/14/23 12:45 Pulse Rate 82 87 85 Respiratory Rate 20 18 Blood Pressure Pulse Oximetry 89 L 92 92 Oxygen Delivery Method Room Air Room Air Room Air Oxygen Flow Rate 07/14/23 13:00 07/14/23 13:15 07/14/23 13:30 Pulse Rate 92 H 84 85 Respiratory Rate 22 15 Blood Pressure Pulse Oximetry 91 93 92 Oxygen Delivery Method Room Air Oxygen Flow Rate 07/14/23 13:45 07/14/23 14:00 07/14/23 14:15 Pulse Rate 89 87 86 Respiratory Rate 24 25 H 24 Blood Pressure Pulse Oximetry 93 93 92 Oxygen Delivery Method Oxygen Flow Rate 07/14/23 14:30 07/14/23 14:45 07/14/23 15:00 Pulse Rate 88 93 H 89 Respiratory Rate 27 H 28 H 21 Blood Pressure Pulse Oximetry 91 Oxygen Delivery Method Oxygen Flow Rate 07/14/23 15:15 07/14/23 15:30 07/14/23 15:45 Pulse Rate 91 H 91 H 89 Respiratory Rate 24 29 H Blood Pressure Pulse Oximetry 91 91 94 Oxygen Delivery Method Nasal Cannula Nasal Cannula Nasal Cannula Oxygen Flow Rate 2 2 07/14/23 16:00 07/14/23 16:15 07/14/23 16:20 Pulse Rate 92 H 90 91 H Respiratory Rate 24 17 16 Blood Pressure Pulse Oximetry 95 95 95 Oxygen Delivery Method Nasal Cannula Nasal Cannula Nasal Cannula Oxygen Flow Rate 2 2 2 07/14/23 16:20 07/14/23 16:30 07/14/23 16:30 Pulse Rate 95 H Respiratory Rate Blood Pressure 152/68 H 135/63 Pulse Oximetry 94 Oxygen Delivery Method Nasal Cannula Oxygen Flow Rate 2 07/14/23 16:45 07/14/23 16:45 07/14/23 17:00 Pulse Rate 91 H 93 H Respiratory Rate 24 Blood Pressure 134/75 Pulse Oximetry 92 94 Oxygen Delivery Method Oxygen Flow Rate 07/14/23 17:00 07/14/23 17:15 04/18/24 17:15 Pulse Rate 90 Respiratory Rate 22 Blood Pressure 145/78 H 133/57 L Pulse Oximetry 93 Oxygen Delivery Method Oxygen Flow Rate 07/14/23 17:30 07/14/23 17:31 07/14/23 17:31 Pulse Rate 88 90 Respiratory Rate 23 24 Blood Pressure 129/65 Pulse Oximetry 92 93 Oxygen Delivery Method Oxygen Flow Rate 07/14/23 17:45 07/14/23 17:45 Pulse Rate 90 Respiratory Rate 19 Blood Pressure 142/80 H Pulse Oximetry 94 Oxygen Delivery Method Oxygen Flow Rate MDM - Nausea/Vomiting/Diarrhea Lab Data 07/14/23 08:30 07/14/23 08:30 Labs: Lab Results 07/14/23 07/14/23 Range/Units 08:30 16:00 WBC 7.3 (4.5-11.0) X10^3/uL RBC 4.16 (4.0-5.2) X10^6/uL Hgb 11.4 L (12.0-16.0) g/dL Hct 34.9 L (36-46) % MCV 83.8 (80-100) fL MCH 27.5 (26-34) PG MCHC 32.8 (30-36) % RDW 14.3 (11.6-14.8) % Plt Count 241 (150-400) X10^3/uL Neut % (Auto) 87.9 H (50-75) % Lymph % (Auto) 3.5 L (25-40) % Phillips % (Auto) 8.1 (3-14) % Eos % (Auto) 0.5 L (2-4) % Baso % (Auto) 0.0 (0-2) % Neut # (Auto) 6500 (9495-8277) /uL Lymph # (Auto) 300 L (2946-6854) /uL Phillips # (Auto) 600 (0-900) /uL Eos # (Auto) 0 (0-450) /uL Baso # (Auto) 0 (0-100) /uL Sodium 135 L (137-145) mmol/L Potassium 3.7 (3.4-5.1) mmol/L Chloride 101 (98-107) mmol/L Carbon Dioxide 32 (22-32) mmol/L BUN 39 H (7-17) mg/dL Creatinine 0.74 (0.52-1.04) mg/dL Estimated GFR > 60 (>60) mL/min BUN/Creatinine Ratio 52.7 H (6-22) Glucose 90 (80-110) mg/dL Calcium 8.9 (8.4-10.2) mg/dL Urine RBC None seen (0-5/HPF) Urine WBC 0-1/hpf (0-5/HPF) Ur Squamous Epith Cells 0-1 /hpf (0-5/HPF) Urine Bacteria Occasional (0-1) (None) Ur Culture Indicated? Cult not indicated Vol Urine Centrifuged 10ml (spun) Point of Care Testing Glucose POC 108 MDM Narrative Medical decision making narrative: Initially somewhat of a mixed picture as to why the patient is here. It was for multiple reasons to include what appears to be pain that is not well controlled with her current medications having some nausea and vomiting. She states it has been awhile since she is urinated. Patient spent an extensive amount of time here in the emergency department. We attempted multiple pain medications. She was able to stand but had quite a bit of pain in the right side of her abdomen. After a period of time here in the ER she still could not urinate. She was bladder scan. She had approximately 400 cc of urine in her bladder. Will catheter was placed. Quite a bit of her discomfort and anxiety actually improved. Social work has been involved with the patient. The spent an extensive amount of time discussing potential options to include home health/hospice. We did put in a hospice referral however the patient was going to talk with her primary oncologist about her treatment regimen and potential outcomes. We will leave the Will catheter in place and have her follow-up with Urology. I will send her home with prescription for oral Dilaudid. She will continue to take her current pain regimen however if her pain becomes more out of control that she can take the Dilaudid as needed. There was no indication for admission to the hospital or transfer for admission. Will discharge patient home with return precautions. Discharge Plan Departure Patient Disposition: Home Clinical Impression: Acute urinary retention, Abdominal pain Activity Restrictions/Additional Instructions: I do recommend that you contact your oncologist for a follow-up. Continue to take all of your medications as directed. If your current home pain management regimen is not working you can take the pain medicine that you were prescribed today. It is also important that you follow-up with the Urology with regard to the urinary retention in the Will catheter. Return to the emergency department for new symptoms. Prescriptions: New hydromorphone [Dilaudid] 2 mg tablet 2 mg PO Q4-6H PRN (Reason: pain) Qty: 14 0RF No Action amlodipine 2.5 mg tablet 2.5 mg PO DAILY morphine 30 mg tablet extended release 30 mg PO BID magnesium citrate Solution 150 ml PO DAILY PRN (Reason: Constipation) lisinopril 40 mg tablet 40 mg PO DAILY atenolol 50 mg tablet 50 mg PO DAILY rosuvastatin 5 mg tablet 5 mg PO DAILY oxycodone 10 mg tablet 10 mg PO Q4HR PRN (Reason: Pain (Scale Score 7-10)) aspirin 81 mg Capsule 81 mg PO DAILY dexamethasone 4 mg tablet 4 mg PO TID Qty: 30 0RF Referrals: Divina Fletcher PA-C [Primary Care Provider] - Deangelo Guevara MD [Physician] - Stand Alone Forms: Patient Portal/API
[2023-07-14 09:05] LABS: Add Manual Diff / Slide Review NO; Basophils Absolute Auto 0 /uL (0-100); Eosinophils Absolute Auto 0 /uL (0-450); Eosinophils Percent Auto 0.5 % (2-4); Hematocrit 34.9 % (36-46); Hemoglobin 11.4 g/dL (12.0-16.0); Lymphocytes Absolute Auto 300 /uL (1100-4500); Lymphocytes Percent Auto 3.5 % (25-40); Mean Corpuscular HGB Conc 32.8 % (30-36); Mean Corpuscular Hemoglobin 27.5 PG (26-34); Mean Corpuscular Volume 83.8 fL (80-100); Monocytes Absolute Auto 600 /uL (0-900); Monocytes Percent Auto 8.1 % (3-14); Neutrophils Absolute Auto 6500 /uL (1500-7000); Neutrophils Percent Auto 87.9 % (50-75); Platelet Count 241 X10^3/uL (150-400); Red Blood Cell Count 4.16 X10^6/uL (4.0-5.2); Red Cell Distribution Width 14.3 % (11.6-14.8); White Blood Cell Count 7.3 X10^3/uL (4.5-11.0)
[2023-07-14 09:13] LABS: BUN Creatinine Ratio 52.7 (6-22); Blood Urea Nitrogen 39 mg/dL (7-17); Calcium 8.9 mg/dL (8.4-10.2); Carbon Dioxide 32 mmol/L (22-32); Chloride 101 mmol/L (98-107); Estimated Glomerular Filt Rate > 60 mL/min (>60); Glucose 90 mg/dL (80-110); HEMOLYSIS 43 (0-50); Potassium 3.7 mmol/L (3.4-5.1); Sodium 135 mmol/L (137-145)
[2023-07-14] MEDS: SODIUM CHLORIDE 0.9% 1,000 ML 1000 ML IV (09:15)
[2023-07-14] MEDS: MORPHINE 4 MG/ML INJ IV ×2 (09:18→11:39)
[2023-07-14] MEDS: ONDANSETRON 4 MG/2 ML INJ IV (09:18)
--- NOTE | 2023-07-14 12:54 | PC.NURSE ---
Attempted patient ambulation and patient was able to stand with 1 person assist. Patient was able to take a single step before patient stated that they could no longer ambulate due to pain. Provider notified. Provider went to talk to patient and significant other. [employer] referral placed by provider.
[2023-07-14] MEDS: HYDROMORPHONE 2 MG TABLET PO (15:03)
[2023-07-14 16:35] LABS: Bacteria Urine Occasional (0-1); Culture Indicated Urine Cult Not Indicated; RBC Urine None Seen (0-5/HPF); Squamous Epithelial Cell Urine 0-1 /HPF (0-5/HPF); Urine Volume 10mL (spun); WBC Urine 0-1/HPF (0-5/HPF)
--- NOTE | 2023-07-14 17:39 | CM.SWNOTE ---
ED [employer] Assessment Note: Pt is a 78yo F, who resides in [place] with partner, Jonathan. Pt presented to the ED due to suspicion of dehydration after three days of nausea and vomiting. Pt was previously seen at the ED on 07/09 for a possible pain medication overdose due to a change in mental status. Pt has a hx of Stage IV Lung Cancer in which she is being seen by Oncologist, Dr. Rice at [facility]. Pt's primary care provider is Divina Fletcher PA-C and insurance is Medicare and [employer]. [employer] was consulted for possible referral to home health. [employer] met with pt at bedside, introduced self and role. Present in the room is pt's partner of three years, Jonathan Chowdhury, and Jonathan's daughter, Keshia. RN and Silica Filter Operator were also present in the room for patient care. Pt was found lying in bed, alert and orientated, able to identify preferences for care. [employer] discussed plan of care with pt and pt strongly endorsed preference to return home with Hospice services. Pt denied having an updated DPOA or POLST. Pt states she does not have many DMEs at home other than home oxygen and a shower handle. Pt does not ambulate independently anymore due to the pain in her hips. [employer] discussed with pt and family options of home health first with RN and [employer] services to continue developing plan of care and obtain services/DMEs in the home. Pt initially declined this, with the advocacy of partner's daughter, Keshia, who is a hospitalist at [facility]. Pt continued to endorse request for Hospice services. [employer] sent referral and clinicals to [facility], spoke with Anil (ph#[phone], fax# [phone]) [facility] was not able to give tentative open date, wanted to connect with pt's partner first. Pt's partner, Jonathan, reached out to this [employer] at her desk and discussed newly developed plan of receiving prescribed po chemotherapy medication from oncologist, Dr. Rice; this was to be delivered to pt's home tomorrow, Tuesday, 4. via [employer]. Pt's oncologist asked for pt to trial medication before opening with hospice services and scheduled a follow up appointment for Tuesday, 07.17. Pt was agreeable to this new plan and requested for a home health referral before discharge from ED. Pt did not have a preference on HH agency. [employer] recommended [facility] and gave pt's family a informational pamphlet. [employer] called [facility] and spoke with [place], noted that HH will not open until Tuesday or Tuesday, pending intake review. Referred for RN, [facility] and Home Health Aide services. [employer] sent clinicals, signed F2F by Dr. Brown, and home health consult order to [facility] (fax# [phone]). [employer] provided phone number for [employer] non-emergency dispatch line to pt for a Safe Assist into home due to pt's decreased mobility. Plan: Pt to discharge home with family, with pending HH and Hospice referrals to open. Pt developing plan of care with oncologist. PRAKASH Waller
== END 2023-07-14 17:59 | disposition home or self-care (01) ==
PROVIDERS: Emergency Provider Emergency Medicine; PCP Physician Assistant
DX: R33.8 Other retention of urine (principal); R10.9 Unspecified abdominal pain; Z79.899 Other long term (current) drug therapy
CPT/HCPCS: 80048; 81015; 85025; 96361; 96374; 96375; 96376; 99284; J2270; J2405